=== PATIENT | male | born 1945 | race Caucasian/White ===

== ENCOUNTER → 2016-10-20 08:57 | Day surgery (SDC) | payer MEDICARE, BC ==
--- NOTE | 2016-10-19 08:59 | NUR ---
KAUFFMAN: DR. MARIE'S OFFICE NOTIFIED PATIENT TOOK LAST DOSE OF PLAVIX ON 10/16/16.
[~2016-10-20] VITALS: Ht 177.8 cm; Wt 95.3 kg
[~2016-10-20 08:57] MED LIST: BAYER CHEWABLE81 MG PO; GLUCOPHAGE1000 MG PO; GLUCOTROL XL 1010 MG PO; HCTZ25 MG PO; LIPITOR20 MG PO; OMEPRAZOLE40 MG PO; PLAVIX75 MG PO; TOPROL XL100 MG PO; TRICOR145 MG PO
[2016-10-20 11:15] LABS: CALC OSMOLALITY 279 mosm/kg (275-300); CALCIUM 9.1 mg/dL (8.5-10.1); CARBON DIOXIDE 26.6 mmol/L (21.0-32.0); CHLORIDE - SERUM 102 mmol/L (98-107); CREATININE - SERUM 0.8 mg/dL (0.6-1.3); GLUCOSE 189 mg/dL (74-106); POTASSIUM - SERUM 3.6 mmol/L (3.5-5.1); SODIUM 138 mmol/L (136-145); UREA NITROGEN 11 mg/dL (7-18); eGFR NON AFRICAN AMERICAN > 90 mL/min (90-120)
[2016-10-20 11:17] LABS: HEMATOCRIT 39.1 % (42.0-54.0); HEMOGLOBIN 12.7 g/dL (13.5-17.5); MCH 28.9 pg (26.0-34.0); MCHC 32.5 g/dL (31.0-37.0); MCV 89.1 fL (80.0-100.0); MEAN PLATELET VOLUME 10.5 fL (7.4-10.4); RBC 4.39 10x6/uL (4.20-6.10)
[2016-10-20 13:03] VITALS: BP 138/64; Ht 177.8 cm; Wt 95.3 kg
--- NOTE | 2016-10-20 14:18 | NUR ---
NO COUNTS OR PREP R/T COLONOSCOPY. BOVIE PAD IN PLACE RIGHT THIGH
--- NOTE | 2016-10-20 17:47 | NUR ---
1600-RECD TO ROOM FROM PACU. ALERT. RESP WITH EASE. 1630-FULL LIQUIDS SERVED. 1700-IV D/C. UP TO BATHROOM, VOIDED AND PASSING GAS. 1715-DISCHARGE INSTRUCTIONS REVIEWED. 1720-D/C VIA W/C WITH FAMILY.
--- NOTE | 2016-10-24 10:04 | OP ---
PATIENT NAME: ARMANDO PEGUERO MEDICAL RECORD: [id number] :49 LOCATION:D.OPS ADMISSION DATE: SURGEON: OLLIE MARIE MD DATE OF OPERATION: 10/20/2016 PREOPERATIVE DIAGNOSIS: Large polyp of the ascending colon. POSTOPERATIVE DIAGNOSES: Large polyp of the ascending colon with inability to remove the entire polyp endoscopically. This polyp will likely harbor an invasive malignancy. Also, 2 other sessile polyps; 1 was 1.4 cm, the other was 1.2 cm. PROCEDURES: 1. Total colonoscopy to the cecum. 2. Hot biopsy forceps polypectomy times 2. 3. Epinephrine sclerotherapy injection at the base of the large polyp involving the ascending colon. 4. Piecemeal snare polypectomy of the polypoid mass of the ascending colon. 5. Cold endoscopic biopsies of the ascending colon mass. 6. Control of bleeding utilizing the argon plasma glory hole tender involving the right colonic mass. SURGEON: Ollie Marie MD. AGRICULTURAL EQUIPMENT SALESPERSON: None. BLOOD LOSS: Minimal. ANESTHESIA: General. COMPLICATIONS: None. The risks, possible complications and alternatives to procedure were explained to the patient. He elects to proceed. If I had attempted to remove the entire polyp, this could have resulted in a full thickness injury as it appears that the polyp likely represents a malignancy. It had a very firm base. I took some deep biopsies, so the patient is at risk for post-polypectomy syndrome or perforation. For that reason, he is going to be dismissed home on Flagyl for a week. I will see him in the office in 2 weeks. At that time, we will discuss laparoscopic right hemicolectomy. TRANSINT:[id number] Voice Confirmation ID: [id number] DOCUMENT ID: [id number] CC: OLLIE Olivares MD at 1004 CC: SHAYNA MCKEON MD and NINA ALMANZAR [id number] DICTATION DATE: 10/20/16 1546 BROILER SUPERVISOR: 10/21/16 0136 [facility] 10/20/[address] [address]
--- NOTE | 2016-10-24 10:04 | HP ---
PATIENT: ARMANDO PEGUERO MEDICAL RECORD: [id number] ACCOUNT: [id number] LOCATION:DVeronicaBRIANNE : 49 ADMISSION DATE: 10/20/16 HISTORY AND PHYSICAL EXAMINATION HISTORY OF PRESENT ILLNESS: The patient was referred with a complex polyp involving the ascending colon. This is quite large. I am going to attempt to remove this in the operating room, utilizing the argon plasma milk vendor. The risks, possible complications and alternatives to procedure were explained to the patient. He elects to proceed. The discussion specifically included, but was not limited to, bleeding requiring emergency reoperation, infection, endoscopic perforation and the possible need for a segmental colectomy or chemotherapy if this proves to represent a malignancy. The history and physical examination was performed in the office. The history and physical examination is unchanged from the office H&P. TRANSINT:[id number] Voice Confirmation ID: [id number] DOCUMENT ID: [id number] OLLIE MARIE MD at 1004 CC: [id number] DICTATION DATE: 10/20/16 154 STORE CLERK CHECKER: 10/20/162009 [facility] 10/20/16 [facility] [address] [place] [address]
== END | disposition home or self-care (01) ==
LOC: D.OPS 08:57 → D.PAN 13:00 → D.OPS 16:45 → D.PAN 16:45
PROVIDERS: Anesthesiology
DX: D12.2 Benign neoplasm of ascending colon (principal); Z01.812 Encounter for preprocedural laboratory examination

== ENCOUNTER 2016-10-28 22:57 | Inpatient (IN) | payer MEDICARE, BC ==
[~2016-10-28] VITALS: Ht 177.8 cm; Wt 97.5 kg
--- NOTE | 2016-10-29 00:05 | NUR ---
REC'D TO ROOM 2204 VIA EMS ON STRETCHER AWAKE AND ALERT. RESP EVEN AND UNLABORED WITH NO DISTRESS NOTED. CAN EXPRESS NEEDS AND WANTS. DENIES ANY PAIN OR DISCOMFORT AT THIS TIME. TURN AND REPOSITION SELF AB DOROTEO. ASSESSMENT COMPLETED. C/L IN REACH AT BEDSIDE.
[2016-10-29 00:31] VITALS: BP 134/63; BMI 30.9
--- NOTE | 2016-10-29 03:09 | NUR ---
RESTING WITH EYES CLOSED, NO DISTRESS NOTED, FALL PRECAUTIONS IN PLACE, CL IN REACH
[2016-10-29 05:06] VITALS: BP 119/59
[2016-10-29 06:49] LABS: HEMATOCRIT 30.5 % (42.0-54.0); HEMOGLOBIN 10.2 g/dL (13.5-17.5)
--- NOTE | 2016-10-29 06:58 | NUR ---
CALL WAS PLACED TO DR. WARNER ON THIS AM INFORMING HIM OF PT ARRRIVAL ON LAST NIGHT. WAS INFORMED THAT HE WILL BE HERE ON TODAY ROUNDING AND WILL SEE PT UPON HIS ARRIVAL.
--- NOTE | 2016-10-29 08:00 | NUR ---
LYING IN BED, ON PHONE, DENIES NEEDS, BED LOWEST POSITION, CALL LIGHT IN REACH, WILL CONTINUE TO MONITOR
[2016-10-29 09:11] VITALS: BP 133/58
--- NOTE | 2016-10-29 10:00 | NUR ---
PT SITTING UP IN BED WITH NO VISABLE SIGNS OF PAIN OR DISCOMFORT AT THIS TIME. PT VOICED NO NEEDS. BED IN LOW POSITION AND CALL LIGHT WITHIN REACH. WILL CONTINUE TO MONITOR.
[2016-10-29 12:02] LABS: HEMATOCRIT 28.8 % (42.0-54.0); HEMOGLOBIN 9.4 g/dL (13.5-17.5)
[2016-10-29 12:09] LABS: BASOPHILS 0.5 % (0-2); EOSINOPHILS 1.4 % (0-7); IMMATURE GRANULOCYTES 0.3 % (0-5); LYMPHOCYTES 35.8 % (15-50); MCH 29.2 pg (26.0-34.0); MCV 88.5 fL (80.0-100.0); MEAN PLATELET VOLUME 10.6 fL (7.4-10.4); MONOCYTES 5.7 % (2-11); NEUTROPHILS 56.3 % (40-80); PLATELET COUNT 190 10x3/uL (130-400); RBC 3.22 10x6/uL (4.20-6.10); RDW 14.7 % (11.5-14.5); WBC 6.7 10x3/uL (4.8-10.8)
[2016-10-29 12:20] VITALS: BP 140/63
[2016-10-29 12:44] LABS: ALKALINE PHOSPHATASE 39 U/L (46-116); ALT (SGPT) 34 U/L (10-68); BILIRUBIN - TOTAL 0.22 mg/dL (0.2-1.3); CALC OSMOLALITY 283 mosm/kg (275-300); CALCIUM 8.1 mg/dL (8.5-10.1); CARBON DIOXIDE 25.5 mmol/L (21.0-32.0); CHLORIDE - SERUM 101 mmol/L (98-107); GLUCOSE 353 mg/dL (74-106); POTASSIUM - SERUM 3.7 mmol/L (3.5-5.1); PROTEIN - SERUM 5.9 g/dL (6.4-8.2); SODIUM 133 mmol/L (136-145); UREA NITROGEN 23 mg/dL (7-18); eGFR NON AFRICAN AMERICAN 79 mL/min (90-120)
--- NOTE | 2016-10-29 13:37 | NUR ---
SITTING IN BED, DENIES NEEDS, WILL CONTINUE TO MONITOR
--- NOTE | 2016-10-29 15:50 | NUR ---
AFTER CT HOLD METFORMIN FOR 48 HRS NOW
[2016-10-29 16:23] VITALS: BP 132/66
[2016-10-29 17:28] LABS: HEMATOCRIT 29.7 % (42.0-54.0); HEMOGLOBIN 9.7 g/dL (13.5-17.5)
[2016-10-29 19:00] VITALS: BP 113/61
--- NOTE | 2016-10-29 20:00 | NUR ---
REC'D IN BED AWAKE AND ALERT. RESP EVEN AND UNLABORED WITH NO DISTRESS NOTED. CAN EXPRESS NEEDS AND WANTS. DENEIS ANY PAIN OR DISCOMFORT AT THIS TIME. ASSESSMENT COMPLETED. C/L IN REACH AT BEDSIDE.
--- NOTE | 2016-10-29 21:46 | NUR ---
PT BS WAS CHECKED WITH RESULTS OF 311 NOTED. CALLED WAS PLACED TO DR. WARNER REC'D NEW ORDERS FOR MODERATED S/S WITH REGULAR INSULIN AT THIS TIME.
[2016-10-29 23:36] LABS: HEMATOCRIT 29.1 % (42.0-54.0); HEMOGLOBIN 9.4 g/dL (13.5-17.5)
[2016-10-30 04:00] VITALS: BP 126/72
--- NOTE | 2016-10-30 06:05 | NUR ---
PATIENT AAOX4 WATCHING TV. JUST TOOK HIBICLENS SHOWER AND HAD LINENS CHANGED. DENIES PAINS OR NEEDS.
[2016-10-30 06:40] LABS: BASOPHILS 0.5 % (0-2); EOSINOPHILS 2.9 % (0-7); HEMATOCRIT 31.2 % (42.0-54.0); HEMOGLOBIN 10.1 g/dL (13.5-17.5); IMMATURE GRANULOCYTES 0.4 % (0-5); LYMPHOCYTES 34.1 % (15-50); MCH 28.8 pg (26.0-34.0); MCHC 32.4 g/dL (31.0-37.0); MCV 88.9 fL (80.0-100.0); MEAN PLATELET VOLUME 10.2 fL (7.4-10.4); MONOCYTES 7.5 % (2-11); NEUTROPHILS 54.6 % (40-80); PLATELET COUNT 202 10x3/uL (130-400); RBC 3.51 10x6/uL (4.20-6.10); RDW 14.4 % (11.5-14.5); WBC 5.5 10x3/uL (4.8-10.8)
--- NOTE | 2016-10-30 07:00 | NUR ---
REPORT RECIEVED ASSUMED CARE. PATIEN TIN BED WITH IV INTACT. NO COMPLAINTS. CALL LIGHT WITHIN REACH.
[2016-10-30 07:03] LABS: CALCIUM 8.7 mg/dL (8.5-10.1); CARBON DIOXIDE 28.6 mmol/L (21.0-32.0); CHLORIDE - SERUM 102 mmol/L (98-107); CREATININE - SERUM 0.8 mg/dL (0.6-1.3); POTASSIUM - SERUM 3.7 mmol/L (3.5-5.1); SODIUM 136 mmol/L (136-145); eGFR NON AFRICAN AMERICAN > 90 mL/min (90-120)
[2016-10-30 07:07] LABS: CALC OSMOLALITY 277 mosm/kg (275-300); GLUCOSE 205 mg/dL (74-106); UREA NITROGEN 12 mg/dL (7-18)
[2016-10-30 08:37] VITALS: BP 140/62
--- NOTE | 2016-10-30 10:14 | NUR ---
* Is the patient Alert and Oriented? Yes 0 * How many steps to enter\exit or inside your home? 0 0 * PCP JENELLE 0 * Pharmacy [facility] 0 * Preadmission Environment Home Alone 0 * ADLs Independent 0 * Equipment None 0 * List name and contact numbers for known caregivers / representatives who currently or will assist patient after discharge: DENISE DUNCAN [phone] 0 * Community resources currently utilized None 0 * Additional services required to return to the preadmission environment? No 0 * Can the patient safely return to the preadmission environment? Yes 0 * Has this patient been hospitalized within the prior 30 days at any hospital? No 0 Grand Total: 0 Patient Name: ARMANDO PEGUERO Admission Status: Elective Accout number: [id number] Admission Date: 10-28-2016 : 1945 Admission Diagnosis: Attending: SHAUN Current LOS: 2 Anticipated DC Date: Planned Disposition: Home Primary Insurance: MEDICARE A & B Discharge Planning Comments: CM met with patient and girlfriend (Rosalba Duncan) to assess discharge planning/needs. Patient states that his discharge plan is to return home where he lives independently. His girlfriend Rosalba will be driving him home. He currently works parts salesperson. There are no step inside his home. He feels that his home is safe to return. He denies any CM needs at this time. CM will continue to follow and assist as needed with discharge planning needs. PCP: [facility] Pharmacy: [facility] Rosalba Duncan (girlfriend) [phone] or [phone] (cell) Correspondence Section Supervisor: Yanet Oneill
[2016-10-30 11:02] VITALS: Ht 177.8 cm; Wt 97.5 kg
[2016-10-30 12:05] VITALS: BP 92/62
--- NOTE | 2016-10-30 15:23 | NUR ---
GAGE GODINEZ DID INITIAL COUNT WITH DAMEON PRIOR TO THE START OF THE CASE ONLY
--- NOTE | 2016-10-30 18:30 | NUR ---
PATIENT BACK TO ROOM FROM SURGERY. IV INTACT. VS STABLE. BSCDS ON AND WORKING. FAMILY AT BEDSIDE. CALL LIGHT WITHIN REACH. MANAGER MSW FOR PAIN.
[2016-10-30 20:14] LABS: HEMATOCRIT 29.9 % (42.0-54.0); HEMOGLOBIN 9.7 g/dL (13.5-17.5)
[2016-10-30 23:25] LABS: HEMATOCRIT 30.4 % (42.0-54.0); HEMOGLOBIN 9.3 g/dL (13.5-17.5)
--- NOTE | 2016-10-31 02:04 | NUR ---
PATIENT SLEEPING WITH NO DISTRESS NOTED. VITALS WNL. RR EVEN AND UNLABORED. O2 @ 1L VIA NC. DRESSING TO ABD SLIGHTLY SOILED BUT INTACT. SCD'S ON. FAMILY AT BEDSIDE. SRX2. BED LOW. CALL LIGHT WITHIN REACH.
[2016-10-31 06:15] LABS: BASOPHILS 0.1 % (0-2); EOSINOPHILS 0 % (0-7); HEMATOCRIT 27.5 % (42.0-54.0); HEMOGLOBIN 8.9 g/dL (13.5-17.5); IMMATURE GRANULOCYTES 0.2 % (0-5); LYMPHOCYTES 8.9 % (15-50); MCH 29.2 pg (26.0-34.0); MCHC 32.4 g/dL (31.0-37.0); MCV 90.2 fL (80.0-100.0); MEAN PLATELET VOLUME 10.6 fL (7.4-10.4); MONOCYTES 5.7 % (2-11); NEUTROPHILS 85.1 % (40-80); PLATELET COUNT 230 10x3/uL (130-400); RBC 3.05 10x6/uL (4.20-6.10); RDW 14.6 % (11.5-14.5)
[2016-10-31 07:03] LABS: WBC 9.4 10x3/uL (4.8-10.8)
[2016-10-31 07:28] LABS: ALBUMIN 2.7 g/dL (3.4-5.0); ALKALINE PHOSPHATASE 29 U/L (46-116); CALCIUM 7.7 mg/dL (8.5-10.1); CARBON DIOXIDE 26.2 mmol/L (21.0-32.0); CHLORIDE - SERUM 104 mmol/L (98-107); MAGNESIUM - SERUM 1.4 mg/dL (1.8-2.4); PHOSPHOROUS 4.8 mg/dL (2.5-4.9); PROTEIN - SERUM 5.6 g/dL (6.4-8.2); SODIUM 138 mmol/L (136-145); eGFR NON AFRICAN AMERICAN 79 mL/min (90-120)
[2016-10-31 07:30] LABS: ALT (SGPT) 45 U/L (10-68); CALC OSMOLALITY 287 mosm/kg (275-300); GLUCOSE 279 mg/dL (74-106); POTASSIUM - SERUM 4.4 mmol/L (3.5-5.1); UREA NITROGEN 17 mg/dL (7-18)
--- NOTE | 2016-10-31 09:45 | NUR ---
DRESSING TO ABDOMEN CHANGED AT THIS TIME DUE TO DRIED BLOOD ON OUTSIDE OF DRESSING. PATIENT TOLERATED WITH SMALL AMOUNT OF PAIN. CALL LIGHT WITHIN REACH.
[2016-10-31 11:51] LABS: HEMATOCRIT 25.7 % (42.0-54.0); HEMOGLOBIN 8.4 g/dL (13.5-17.5)
--- NOTE | 2016-10-31 12:15 | NUR ---
SAT PATIENT UP ON SIDE OF BED. EXPLAINED NEEDS TO TRY TO MOVE AROUND TO GET HIS COLON MOVING. VERBALIZED UNDERSTANDING. SAT ON THE BED ABOUT 2 MINS THEN STATED HE WAS READY TO LAY BACK DOWN. LAID PATIENT BACK DOWN. FAMILY AT BEDSIDE. CALL LIGHT WITHIN REACH.
--- NOTE | 2016-10-31 17:50 | NUR ---
SAT PATIENT UP IN CHAIR. EXPLAINED HE NEEDED TO SAT UP FOR AWHILE. VERBALIZED UNDERSTANDING. CALL LIGHT WITHIN REACH.
--- NOTE | 2016-10-31 18:50 | NUR ---
PATIENT IN BED WITH NO COMPLAINTS. IV INTACT. CALL LIGHT WITHIN REACH.
[2016-10-31 19:00] VITALS: BP 135/56
--- NOTE | 2016-10-31 21:10 | NUR ---
AWAKE,ALERT. IV INFUSING TO LEFT FOREARM WIHTOUT REDNESS OR EDEMA NOTED. RAMIREZ. ABD DISTENDED AND FIRM. FOLELY PATENT AND DRAING LIGHT GREEN URINE. CL IN REACH. NO COMPLIANTS VOICED.
--- NOTE | 2016-11-01 00:50 | NUR ---
PATIENT RESTING WITH EYES CLOSED AND NO VISIBLE SIGNS OF DISTRESS. BED IN THE LOWEST POSITION AND CALL LIGHT WITHIN REACH.
[2016-11-01 02:27] VITALS: BP 132/54
[2016-11-01 04:00] VITALS: BP 153/64
[2016-11-01 05:23] LABS: HEMATOCRIT 23.8 % (42.0-54.0); HEMOGLOBIN 7.6 g/dL (13.5-17.5)
--- NOTE | 2016-11-01 05:39 | NUR ---
AWAKE,ALERT.CONTINUES TO HAVE ABD DISTENTION. ABD FIRM. BS HYPOACTIVE. CL IN REACH.
--- NOTE | 2016-11-01 07:30 | NUR ---
RECIEVED PT DURING WALKING ROUNDS. PT RESTING IN BED WITH COMPLAINTS OF STOMACH PAIN FROM NOT BEING ABLE TO PASS GAS. INFORMED PT THAT WE WOULD SPEAK WITH THE DOCTOR ABOUT IT AND THAT WE WOULD GET HIM UP TO WALK AFTER MORNING MEDS. ASSESSMENT DONE PER FLOWSHEET. BED IN LOW POSITION AND CALL LIGHT WITHIN REACH. WILL CONTINUE TO MONITOR.
[2016-11-01 08:44] VITALS: BP 159/65
[2016-11-01 11:39] LABS: HEMATOCRIT 24.1 % (42.0-54.0); HEMOGLOBIN 7.8 g/dL (13.5-17.5)
--- NOTE | 2016-11-01 13:10 | NUR ---
PT UP WALKING IN OROSCO WITH NURSE AID AT THIS TIME, PT STATED THAT HE WOULD TRY THIS AND THEN SOMETHING HAD TO BE DONE. INFORMED PT THAT WE WOULD SPEAK WITH . PT RETURNED TO CHAIR. CALL LIGHT WITHIN REACH. WILL CONTINUE TO MONITOR.
[2016-11-01 13:37] VITALS: BP 142/62
--- NOTE | 2016-11-01 16:20 | NUR ---
18 ALBANIAN NGT PLACED TO LEFT NARE. POSITION VERIFIED WITH AIR BOLUS. WELL TOLERATED.
[2016-11-01 16:35] VITALS: BP 136/64
[2016-11-01 16:48] LABS: HEMATOCRIT 25.3 % (42.0-54.0); HEMOGLOBIN 8.2 g/dL (13.5-17.5)
[2016-11-01 21:27] VITALS: BP 161/70
--- NOTE | 2016-11-01 21:30 | NUR ---
LYING QUIETLY WATCHING TV. NG INTACT TO LEFT NARE.DRAINING CLEAR DRAINAGE.ABD DISTENDED AND FIRM.IV INFUSING TO LEFT ARM WITHOUT REDNESS OR EDEMA NOTED. CL IN REACH
[2016-11-01 22:55] LABS: HEMATOCRIT 27.5 % (42.0-54.0); HEMOGLOBIN 8.9 g/dL (13.5-17.5)
[2016-11-02] VITALS: BP 182/79
--- NOTE | 2016-11-02 02:11 | NUR ---
RESTING QUIETLY. NO DISTRESS NOTED.CL IN REACH
[2016-11-02 04:00] VITALS: BP 90/49
--- NOTE | 2016-11-02 05:15 | NUR ---
PT IS ASLEEP WITH HOB AT 30 DEGREES HIS NG TUBE IS IN PLACE AND AT LIS ORDERED. NO DISTRESS NOTED AND EASY RESPIRATIONS. THE BED IS LOW, RAILS UP X'S 2 WITH THE CALL LIGHT AT HAND.
--- NOTE | 2016-11-02 05:50 | NUR ---
AWAKE WITH NO COMPLAINTS. CL IN REACH.
[2016-11-02 05:51] LABS: HEMATOCRIT 27.6 % (42.0-54.0); HEMOGLOBIN 9.1 g/dL (13.5-17.5)
--- NOTE | 2016-11-02 07:30 | NUR ---
RECIEVED PT DURING WALKING ROUNDS. PT RESTING IN BED WITH COMPLAINTS OF ABDOMINAL PAIN OF A 6 ON A SCALE OF 1-10. NG TUBE IN PLACE AND FUNCTIONING PROPERLY. ASSESSMENT DONE PER FLOWSHEET. BED IN LOW POSITION AND CALL LIGHT WITHIN REACH. WILL CONTINUE TO MONITOR.
[2016-11-02 07:45] VITALS: BP 164/87
--- NOTE | 2016-11-02 09:20 | NUR ---
PT HAD LIQUID BM AND WAS ABLE TO PASS GAS AT THIS TIME. WILL CONTINUE TO MONITOR.
[2016-11-02 11:48] LABS: HEMATOCRIT 27.9 % (42.0-54.0)
[2016-11-02 12:08] VITALS: BP 183/81
--- NOTE | 2016-11-02 14:36 | NUR ---
NUTRITION MONITORING & EVAL CHART REVIEWED. DIET NOW CLEAR LIQUID >AAT. WILL PROVIDE DIET, MONITOR PO INTAKE. RD FOLLOWING
[2016-11-02 15:41] VITALS: BP 184/90
[2016-11-02 16:55] LABS: HEMATOCRIT 24.4 % (42.0-54.0)
[2016-11-02 20:00] VITALS: BP 151/71
--- NOTE | 2016-11-02 20:21 | NUR ---
AWAKE,ALERT.NO COMPLAINTS VOICED. IV INFUSING TO LEFT ARM WIHTOUT REDNESS OR EDEMA NOTED. ABD DISTENDED AND FIRM.PASSING FLATUS.CL IN REACH. DIRECTIONAL BORE OPERATOR DILAUDID IN USE FOR PAIN CONTROL.
[2016-11-02 23:14] LABS: HEMATOCRIT 24.9 % (42.0-54.0); HEMOGLOBIN 8.1 g/dL (13.5-17.5)
[2016-11-03] VITALS: BP 156/72
--- NOTE | 2016-11-03 00:11 | NUR ---
RESTING QUIETLY. NO DISTRESS NOTED. CL IN REACH
--- NOTE | 2016-11-03 03:37 | NUR ---
PATIENT RESTING IN BED WITH EYES CLOSED AND NO VISIBLE SIGNS OF DISTRESS. BED IN LOWEST POSITION AND CALL LIGHT WITHIN REACH.
[2016-11-03 04:00] VITALS: BP 95/57
--- NOTE | 2016-11-03 06:29 | NUR ---
NO CHANGE IN ASSESSMENT. CL IN REACH
--- NOTE | 2016-11-03 07:30 | NUR ---
RECIEVED PT DURING WALKING ROUNDS. PT RESTING IN BED WITH COMPLAINTS OF PAIN OF A 5 ON A SCALE OF 1-10 IN THE LOWER ABDOMEN. DISCUSSED WITH THE PT AT THIS TIME ABOUT AMBULATING TO PROMOTE GAS, PT STATED HE WOULD TRY. ASSESSMENT DONE PER FLOWSHEET. BED IN LOW POSITION AND CALL LIGHT WITHIN REACH. WILL CONTINUE TO MONITOR.
[2016-11-03 08:09] VITALS: BP 156/70
--- NOTE | 2016-11-03 09:50 | NUR ---
PT AMBULATED WITH DOLL DRESSER AROUND UNIT X2, TOLERATED WELL, PT STATES HE IS PASSING GAS BUT STILL FEELS PAIN IN HIS ABDOMEN. EXPLAINED TO PT THAT PAIN AFTER SURGERY IS NORMAL. BED IN LOW POSITION AND CALL LIGHT WITHIN REACH, WILL AMBULATE WITH PT AT LATER TIME.
[2016-11-03 12:36] VITALS: BP 163/67
[2016-11-03 15:50] VITALS: BP 136/70
[2016-11-03] MEDS ORDERED: HYDROCODON-ACE1 EAC7 PO (17:31)
--- NOTE | 2016-11-03 19:00 | NUR ---
PATIENT SLEEPING WITH NO DISTRESS NOTED. AROUSES TO VOICE. HOB 40 DEGREES. RR EVEN AND UNLABORED. IV TO RIGHT WRIST PATENT WITH NO REDNESS OR SWELLING. DRESSINGS TO ABD CDI. SCD'S IN ROOM BUT OFF. SRX2. BED LOW. CALL LIGHT WITHIN REACH.
[2016-11-03 20:00] VITALS: BP 135/85
--- NOTE | 2016-11-03 20:35 | NUR ---
8 UNITS HUMULIN GIVEN FOR BS OF 208.
[2016-11-04] VITALS: BP 179/76
[2016-11-04 04:00] VITALS: BP 143/69
--- NOTE | 2016-11-04 07:00 | NUR ---
REPORT RECIEVED ASSUMED CARE. PATIENT IN BED WITH EYES CLOSED RESTING QUIETLY AT THIS TIME. IV INTACT. CALL LIGHT WITHIN REACH.
[2016-11-04 08:16] VITALS: BP 136/74
--- NOTE | 2016-11-04 08:45 | NUR ---
PATIENT STATED HIS STOMACH WAS TIGHT AND HURTING. EXPLAINED TO PATIENT TO TRY TO GET UP AND WALK. VERBALIZED UNDERSTANDING. IV INTACT. CALL LIGHT WITHIN REACH.
--- NOTE | 2016-11-04 11:21 | NUR ---
NOTIFIED DR. ADAMS OF PATIENTS COMPLAINTS OF ABDOMINAL TIGHTNESS AND DISCOMFORT. NO NEW ORDERS AT THIS TIME.
[2016-11-04 12:46] VITALS: BP 103/69
--- NOTE | 2016-11-04 13:40 | NUR ---
NGT PLACED PER ORDERS DR. ADAMS. IV REMOVED DUE TO LEAKING. FAMILY AT BEDSIDE. CALL LIGHT WITHIN REACH.
[2016-11-04 13:58] LABS: BASOPHILS 0.2 % (0-2); EOSINOPHILS 0.3 % (0-7); HEMOGLOBIN 9.6 g/dL (13.5-17.5); IMMATURE GRANULOCYTES 0.3 % (0-5); LYMPHOCYTES 20.6 % (15-50); MCHC 31.3 g/dL (31.0-37.0); MCV 89.5 fL (80.0-100.0); MEAN PLATELET VOLUME 9.4 fL (7.4-10.4); MONOCYTES 16.1 % (2-11); NEUTROPHILS 62.5 % (40-80); RBC 3.43 10x6/uL (4.20-6.10); RDW 14.7 % (11.5-14.5); WBC 5.7 10x3/uL (4.8-10.8)
[2016-11-04 14:03] LABS: HEMATOCRIT 30.7 % (42.0-54.0); PLATELET COUNT 336 10x3/uL (130-400)
[2016-11-04 14:11] LABS: CALC OSMOLALITY 274 mosm/kg (275-300); CALCIUM 8.3 mg/dL (8.5-10.1); CARBON DIOXIDE 26.3 mmol/L (21.0-32.0); CHLORIDE - SERUM 97 mmol/L (98-107); CREATININE - SERUM 0.8 mg/dL (0.6-1.3); POTASSIUM - SERUM 3.3 mmol/L (3.5-5.1); SODIUM 134 mmol/L (136-145); UREA NITROGEN 18 mg/dL (7-18); eGFR NON AFRICAN AMERICAN > 90 mL/min (90-120)
[2016-11-04 14:14] LABS: GLUCOSE 195 mg/dL (74-106)
--- NOTE | 2016-11-04 15:45 | NUR ---
PATIENT IN BED WITH EYES CLOSED RESTING QUIETLY. CALL LIGHT WITHIN REACH.
[2016-11-04 16:14] VITALS: BP 141/69
[2016-11-04 20:00] VITALS: BP 149/72
[2016-11-05] VITALS: BP 158/72
[2016-11-05 04:00] VITALS: BP 148/66
[2016-11-05 06:29] LABS: BASOPHILS 0.3 % (0-2); EOSINOPHILS 1.8 % (0-7); IMMATURE GRANULOCYTES 0.5 % (0-5); LYMPHOCYTES 23.9 % (15-50); MCH 29.2 pg (26.0-34.0); MCHC 33.2 g/dL (31.0-37.0); MCV 88.1 fL (80.0-100.0); MEAN PLATELET VOLUME 9.2 fL (7.4-10.4); MONOCYTES 13.8 % (2-11); NEUTROPHILS 59.7 % (40-80); RDW 14.6 % (11.5-14.5)
[2016-11-05 06:34] LABS: HEMATOCRIT 22.9 % (42.0-54.0); HEMOGLOBIN 7.6 g/dL (13.5-17.5); PLATELET COUNT 238 10x3/uL (130-400)
[2016-11-05 06:47] LABS: CALC OSMOLALITY 273 mosm/kg (275-300); CALCIUM 7.5 mg/dL (8.5-10.1); CARBON DIOXIDE 28.8 mmol/L (21.0-32.0); CHLORIDE - SERUM 99 mmol/L (98-107); CREATININE - SERUM 0.8 mg/dL (0.6-1.3); GLUCOSE 157 mg/dL (74-106); MAGNESIUM - SERUM 1.6 mg/dL (1.8-2.4); SODIUM 135 mmol/L (136-145); UREA NITROGEN 15 mg/dL (7-18); eGFR NON AFRICAN AMERICAN > 90 mL/min (90-120)
--- NOTE | 2016-11-05 07:00 | NUR ---
REPORT RECIEVED ASSUMED CARE. PATIENT IN BED WITH IV INTACT. NO COMPLAINTS. CALL LIGHT WITHIN REACH.
[2016-11-05 08:04] VITALS: BP 146/64
--- NOTE | 2016-11-05 11:30 | NUR ---
PATIENT FIRST UNIT STARTED AT THIS TIME. VS STABLE. NO COMPLAINTS. IV INTACT. CALL LIGHT WITHIN REACH.
--- NOTE | 2016-11-05 11:45 | NUR ---
PATIENT IN BED WITH BLOOD INFUSING AT THIS TIME. IV INTACT. NO COMPLAINTS. VS STABLE. CALL LIGHT WITHIN REACH.
[2016-11-05 12:00] VITALS: BP 145/63
--- NOTE | 2016-11-05 13:30 | NUR ---
PATIENT FIRST UNIT OF BLOOD FINISHED. NO PROBLEMS OR DISTRESS. IV INTACT. NO COMPLAINTS. VS STABLE. CALL LIGHT WITHIN REACH.
--- NOTE | 2016-11-05 14:30 | NUR ---
PATIENT RECIEVED SECOND UNIT OF BLOOD. IV INTACT. NO COMPLAINTS. VS STABLE. CALL LIGHT WITHIN REACH.
--- NOTE | 2016-11-05 16:20 | NUR ---
PATIENT BLOOD FINISHED, VS STABLE. NO COMPLAINTS. AWAITING ABDOMINAL CT. CALL LIGHT WITHIN REACH.
--- NOTE | 2016-11-05 18:44 | NUR ---
PATIENT IN BED WITH EYES CLOSED RESTING QUIETLY. NGT AND IV INTACT. NO COMPLAINTS. CALL LIGHT WITHIN REACH.
--- NOTE | 2016-11-05 19:00 | NUR ---
PATIENT IN BED WATCHING TV. HOB 30 DEGREES. AAOX4. RR EVEN AND UNLABORED. 0 S/S OF DISTRESS. STATES PAIN IS AN 8/10. NG TUBE TO LEFT NARE TO LIS. IV TO LEFT HAND PATENT WITH NO REDNESS OR SWELLING. DRESSINGS TO ABD CDI. SCD'S IN ROOM BUT OFF. SRX2. BED LOW. CALL LIGHT WITHIN REACH.
[2016-11-05 20:00] VITALS: BP 19/77
--- NOTE | 2016-11-05 20:40 | NUR ---
NIGHTTIME MEDICATIONS ADMINISTERED. 4 UNITS HUMULIN GIVEN FOR BS OF 185. NORCO GIVEN FOR PAIN. WILL REASSESS.
[2016-11-06] VITALS: BP 161/79
--- NOTE | 2016-11-06 02:45 | NUR ---
NORCO GIVEN FOR PAIN. WILL REASSESS.
[2016-11-06 04:00] VITALS: BP 156/71
[2016-11-06 06:03] LABS: CALC OSMOLALITY 273 mosm/kg (275-300); CALCIUM 7.8 mg/dL (8.5-10.1); CARBON DIOXIDE 30.1 mmol/L (21.0-32.0); CHLORIDE - SERUM 96 mmol/L (98-107); CREATININE - SERUM 0.7 mg/dL (0.6-1.3); GLUCOSE 178 mg/dL (74-106); MAGNESIUM - SERUM 1.7 mg/dL (1.8-2.4); SODIUM 135 mmol/L (136-145); UREA NITROGEN 12 mg/dL (7-18); eGFR NON AFRICAN AMERICAN > 90 mL/min (90-120)
--- NOTE | 2016-11-06 07:45 | NUR ---
ENEMA GIVEN, LARGE BOWEL MOVEMENT AFTER, DENIES NEEDS, WILL CONINUE TO MONITOR
[2016-11-06 09:35] VITALS: BP 167/67
[2016-11-06 11:49] VITALS: BP 112/73
[2016-11-06 16:29] VITALS: BP 163/72
--- NOTE | 2016-11-06 19:00 | NUR ---
PATIENT SITTING UP IN CHAIR. AAOX4. RR EVEN AND UNLABORED. 0 S/S OF DISTRESS. NG TUBE TO LEFT NARE TO LIS. STATES PAIN IS A 4/10. IV TO LEFT HAND PATENT WITH NO REDNESS OR SWELLING. DRESSINGS TO ABD CDI. CALL LIGHT WITHIN REACH.
[2016-11-06 20:00] VITALS: BP 149/72
--- NOTE | 2016-11-06 22:30 | NUR ---
NORCO GIVEN FOR PAIN. WILL REASSESS.
--- NOTE | 2016-11-06 22:30 | NUR ---
NIGHTTIME MEDICATION ADMINISTERED. 2 UNITS HUMULIN ADMINISTERED FOR BS OF 185.
[2016-11-07] VITALS: BP 144/70
[2016-11-07 04:00] VITALS: BP 140/68
--- NOTE | 2016-11-07 04:39 | NUR ---
PATIENT SITTING IN CHAIR. C/O BACK PAIN OF A 10/14. NORCO GIVEN. WILL REASSESS.
--- NOTE | 2016-11-07 07:30 | NUR ---
PATIENT IN LOW SANCHEZ POSITION RESTING QUIETLY WITH EYES CLOSED. RESPIRATIONS EVEN AND UNLABORED. SIDE RAILS UP X2. BED IN LOW POSITION. CALL LIGHT IN REACH.
--- NOTE | 2016-11-07 07:43 | NUR ---
UP TO BATHROOM, DENIES NEEDS, CALL LIGHT IN REACH, WILL CONTINUE TO MONITOR
[2016-11-07 09:30] VITALS: BP 157/72
[2016-11-07 13:54] VITALS: BP 174/81
--- NOTE | 2016-11-07 14:22 | NUR ---
SLEEPING, BREATHING EVEN UNLABORED, WILL CONTINEU TO MONITOR
[2016-11-07 16:23] VITALS: BP 148/70
--- NOTE | 2016-11-07 19:00 | NUR ---
PATIENT SITTING UP IN CHAIR. AAOX4. RR SHALLOW AND UNLABORED. STATES PAIN IS AN 8/10 AND THAT HE IS "VERY UNCOMFORTABLE." IV TO LEFT HAND PATENT WITH NO REDNESS OR SWELLING. DRESSINGS TO ABD CDI. CALL LIGHT WITHIN REACH.
[2016-11-07 20:00] VITALS: BP 166/82
--- NOTE | 2016-11-07 22:05 | NUR ---
NIGHTTIME MEDICATION ADMINISTERED. 8 UNITS HUMULIN GIVEN FOR BS OF 236. NORCO GIVEN FOR PAIN AND ZOFRAN GIVEN FOR NAUSEA.
[2016-11-08] VITALS: BP 143/71
[2016-11-08 04:00] VITALS: BP 126/71
--- NOTE | 2016-11-08 04:46 | NUR ---
NORCO GIVEN FOR PAIN. WILL REASSESS.
[2016-11-08 05:47] LABS: BASOPHILS 0.2 % (0-2); EOSINOPHILS 0 % (0-7); HEMATOCRIT 34.6 % (42.0-54.0); HEMOGLOBIN 11.3 g/dL (13.5-17.5); IMMATURE GRANULOCYTES 0.6 % (0-5); LYMPHOCYTES 12.2 % (15-50); MCH 28.6 pg (26.0-34.0); MCHC 32.7 g/dL (31.0-37.0); MCV 87.6 fL (80.0-100.0); MEAN PLATELET VOLUME 9.7 fL (7.4-10.4); RBC 3.95 10x6/uL (4.20-6.10); RDW 14.9 % (11.5-14.5); WBC 9.2 10x3/uL (4.8-10.8)
[2016-11-08 06:03] LABS: CALC OSMOLALITY 276 mosm/kg (275-300); CALCIUM 7.5 mg/dL (8.5-10.1); CARBON DIOXIDE 30.3 mmol/L (21.0-32.0); CHLORIDE - SERUM 96 mmol/L (98-107); CREATININE - SERUM 0.9 mg/dL (0.6-1.3); GLUCOSE 215 mg/dL (74-106); MAGNESIUM - SERUM 1.9 mg/dL (1.8-2.4); PLATELET COUNT 351 10x3/uL (130-400); SODIUM 134 mmol/L (136-145); UREA NITROGEN 20 mg/dL (7-18); eGFR NON AFRICAN AMERICAN 89 mL/min (90-120)
--- NOTE | 2016-11-08 07:15 | NUR ---
PATIENT IN LOW SANCHEZ POSITION RESTING QUIETLY WITH EYES CLOSED. RESPIRATIONS EVEN AND UNLABORED. SIDE RAILS UP X2. CALL LIGHT IN REACH.
--- NOTE | 2016-11-08 07:45 | NUR ---
SLEEPING, BREATHING EVEN UNLABORED, BED LOWEST POSITION, CALL LIGHT IN REACH, WILL CONTINUE TO MONITOR
[2016-11-08 08:06] VITALS: BP 138/65
[2016-11-08 12:27] VITALS: BP 131/62
[2016-11-08 15:52] VITALS: BP 152/64
[2016-11-08 20:00] VITALS: BP 134/65
[2016-11-09] VITALS: BP 122/60
[2016-11-09 04:00] VITALS: BP 121/57
[2016-11-09 05:31] LABS: BASOPHILS 0.1 % (0-2); HEMATOCRIT 30.9 % (42.0-54.0); HEMOGLOBIN 10.1 g/dL (13.5-17.5); IMMATURE GRANULOCYTES 0.6 % (0-5); LYMPHOCYTES 15.2 % (15-50); MCH 28.9 pg (26.0-34.0); MCHC 32.7 g/dL (31.0-37.0); MCV 88.3 fL (80.0-100.0); MEAN PLATELET VOLUME 9.6 fL (7.4-10.4); MONOCYTES 11.6 % (2-11); NEUTROPHILS 71.5 % (40-80); PLATELET COUNT 306 10x3/uL (130-400); RDW 14.7 % (11.5-14.5)
[2016-11-09 06:10] LABS: CARBON DIOXIDE 27.6 mmol/L (21.0-32.0); CHLORIDE - SERUM 96 mmol/L (98-107); CREATININE - SERUM 0.7 mg/dL (0.6-1.3); MAGNESIUM - SERUM 1.7 mg/dL (1.8-2.4); SODIUM 133 mmol/L (136-145); UREA NITROGEN 15 mg/dL (7-18); eGFR NON AFRICAN AMERICAN > 90 mL/min (90-120)
[2016-11-09 06:13] LABS: CALC OSMOLALITY 268 mosm/kg (275-300); CALCIUM 6.9 mg/dL (8.5-10.1); GLUCOSE 142 mg/dL (74-106); POTASSIUM - SERUM 2.9 mmol/L (3.5-5.1)
--- NOTE | 2016-11-09 08:05 | NUR ---
ASSESSMENT PER FLOW SHEET.PT WITHOUT DISTRESS.DENIES NEEDS AT PRESENT.ASSIST TO BATHROOM AND BACK TO BED.CALL LIGHT IN REACH
[2016-11-09 08:26] VITALS: BP 141/65
[2016-11-09 12:46] VITALS: BP 140/66
--- NOTE | 2016-11-09 13:30 | NUR ---
NUTRITION MONITORING & EVAL CHART REVIEWED. CLEAR LIQUID DIET. IF PT UNABLE TO TOLERATE FULL LIQUID DIET IN 24 TO 48 HOURS, RECOMMEND STARTING NUTRITION SUPPORT. RD FOLLOWING
--- NOTE | 2016-11-09 16:05 | NUR ---
CALL TO DR. FRANK MERCEDES... STOOL STUDIES
[2016-11-09 16:11] VITALS: BP 138/68
--- NOTE | 2016-11-09 16:13 | NUR ---
ORDERS RECIEVED PER DR. WARNER AND INITIATED
--- NOTE | 2016-11-09 17:36 | NUR ---
INCREASED ABDOMINAL DISTENTION AND GAS.CALL TO
--- NOTE | 2016-11-09 18:37 | NUR ---
PT UPSET,PAGE TO DR WARNER.
[2016-11-09 20:00] VITALS: BP 121/61
--- NOTE | 2016-11-09 23:42 | NUR ---
1944)REC'D STANDING AT BEDSIDE.ANGRY STATES HASN'T LOOKED AT MY STOMACH INTRUCTED WILL CALL AGAIN IF ANY FURTHER PROBLEMS .DENIES NAUSEA. WILL CONTINUE TO MONITOR FOR ANY CHGES IN CHGES. IN CONDITION AND FOLLOW CURRENT PLAN OF CARE.
[2016-11-10] VITALS: BP 131/72
--- NOTE | 2016-11-10 00:44 | NUR ---
ASSESSED, AWAKE WATCHING TV WITH FAMILY MEMBER AT THE BEDSIDE ASLEEP. NO PROBLEMS NOTED OR VOICED. BED IS LOW, RAILS UP X'S 2 WITH THE CALL LIGHT AT HAND.
--- NOTE | 2016-11-10 00:48 | NUR ---
ASSESSED, PT IS RESTING QUIET ASLEEP WITH EASY RESPIRATIONS AND NO DISTRESS NOTED. HOB IS UP 30 DEGREES. THE BED IS LOW, RAILS UP X'S 2 WITH THE CALL LIGHT AT HAND.
[2016-11-10 04:00] VITALS: BP 146/65
[2016-11-10 07:37] VITALS: BP 148/64
--- NOTE | 2016-11-10 07:50 | NUR ---
ASSESSMENT PER FLOW SHEET.PT WITHOUT DISTRESS.STATES HAD BETTER NIGHT,BUT COMPLAINS OF GAS.ABD DISTENDED AND FIRM.PT DENIES NAUSE,BUT STATES HE HAS BEEN BURPING.LAP SITES TO ABDOMEN X3 CDI.CALL LIGHT IN REACH
[2016-11-10 12:11] VITALS: BP 148/73
[2016-11-10 15:36] VITALS: BP 141/77
--- NOTE | 2016-11-10 17:00 | NUR ---
16 KINYARWANDA NGT INSERTED TO RIGHT NARE. 1750 CC OF DARK GREEN COLORED LIQUID RETURNED TO CANISTERS. ASSIST TO BATHROOM AND PT HAD MEDIUM DARK GREEN STOOL WITH SMALL SOFT FORMED PIECES. REPORTS IMMEDIATE RELIEF AFTER NGT INSERTION.MONITOR FOR NEEDS.CALL LIGHT IN REACH.
--- NOTE | 2016-11-10 19:13 | NUR ---
FEELING BETTER.2000CC OF GREEN COLORED DRAINAGE FROM NGT.CONT PLAN OF CARE
[2016-11-10 20:00] VITALS: BP 135/70
--- NOTE | 2016-11-10 23:08 | NUR ---
ASSESSED, PT REMAINS IN ISOLATION, HIS NG TUBE IS SECURE TO LIS AND HE HAS A DRUG AND ALCOHOL TREATMENT SPECIALIST FOR PAIN CONTROL. REQUESTED A FAN EARLIER BUT IS NOW WANTING IT OFF. THE BED IS LOW, RAILS UP X'S 2 WITH THE CALL LIGHT AT HAND.
[2016-11-11] VITALS: BP 146/73
[2016-11-11 04:00] VITALS: BP 150/66
[2016-11-11 07:54] VITALS: BP 144/60
--- NOTE | 2016-11-11 08:00 | NUR ---
ASSESSMENT PER FLOW SHEET.FEELING BETTER TODAY.STILL HAVING MEDIUM GREEN DRAINAGE IN NGT CANISTER.REPORTS LOOSE STOOLS THIS AM.WITHOUT NAUSEA AND VOMITING.ABDOMEN DISTEDED AND FIRM,BUT LESS THAN YESTERDAY.PAIN CONTROLLED WITH RANGE AIDE.CALL LIGHT IN REACH.ENTERIC ISOLATION MAINTAINED.
[2016-11-11 12:39] VITALS: BP 145/61
[2016-11-11 15:30] VITALS: BP 140/83
--- NOTE | 2016-11-11 17:15 | NUR ---
STILL HAVING SOME ABDOMINAL DISCOMFORT. APROX 800CC OF BILE COLORED DRAINAGE IN NGT CANISTER. REPORTS LOOSE STOOLS.MEDS ORDERED.REMAINS WITHOUT CHNAGE FROM INITIAL SHIFT ASSESSMENT.CONT PLAN OF CARE
--- NOTE | 2016-11-11 19:15 | NUR ---
PATIENT RESTING IN BED WITH GUESTS AT BEDSIDE. PATIENT DENIES NEEDS AT THIS TIME. BED IN LOWEST POSITION AND CALL LIGHT WITHIN REACH. ENCOURAGED THE PATIENT TO CALL IF HE HAS NEEDS.
[2016-11-11 20:00] VITALS: BP 139/70
[2016-11-12] VITALS: BP 153/54
[2016-11-12 04:00] VITALS: BP 151/69
--- NOTE | 2016-11-12 07:45 | NUR ---
ASSESSMENT PER FOW SHEET.PT WITHOUT DISTRESS.MINIMAL LIGHT GREEN DRAINAGE IN NGT CANISTER.ABDOMEN STILL DISTENDED AND FIRM.DENIES NAUSEA.REPORTS LOOSE STOOL THIS AM X1.REPORTS PASSING GAS THIS AM.BOWEL SOUNDS POSITIVE TODAY. PAIN CONTROLLED WITH SQL TECH.ISOLATION MAINTAINED.CALL LIGHT IN REACH
[2016-11-12 08:59] VITALS: BP 148/74
[2016-11-12 13:24] VITALS: BP 92/47
--- NOTE | 2016-11-12 13:30 | NUR ---
DENIES PAIN IN ABDOMEN.STATES PAIN IN NOSE AND THROAT FROM NGT INSERTION.FEELING BETTER.VISITORS HERE TO SEE HIM.MONITOR FOR NEEDS.
[2016-11-12 15:44] VITALS: BP 124/71
--- NOTE | 2016-11-12 16:18 | NUR ---
REMAINS WITHOUT NEEDS.ISOLATION MAINTAINED.CALL LIGHT IN REACH
[2016-11-12 19:00] VITALS: BP 168/77
--- NOTE | 2016-11-12 19:46 | NUR ---
PATIENT RESTING IN BED AND DENIES NEEDS AT THIS TIME. BED IN LOWEST POSITION AND CALL LIGHT WITHIN REACH. ENCOURAGED THE PATIENT TO CALL IF HE HAS NEEDS.
--- NOTE | 2016-11-12 20:36 | NUR ---
ADMINISTERED MEDS PER ORDERS. PATIENT DENIES NEEDS AT THIS TIME.
[2016-11-13] VITALS: BP 146/76
[2016-11-13 04:00] VITALS: BP 159/82
--- NOTE | 2016-11-13 07:00 | NUR ---
REPORT RECIEVED ASSUMED CARE. PATIENT IN BED WITH IV INTACT. NO COMPLAINTS. NGT INTACT. CALL LIGHT WITHIN REACH.
[2016-11-13 08:04] VITALS: BP 152/83
[2016-11-13 11:35] VITALS: BP 147/69
[2016-11-13 12:53] LABS: BASOPHILS 0.2 % (0-2); EOSINOPHILS 0.1 % (0-7); HEMATOCRIT 29.8 % (42.0-54.0); HEMOGLOBIN 9.6 g/dL (13.5-17.5); IMMATURE GRANULOCYTES 0.7 % (0-5); LYMPHOCYTES 9.8 % (15-50); MCH 28.7 pg (26.0-34.0); MCHC 32.2 g/dL (31.0-37.0); MCV 89.2 fL (80.0-100.0); MONOCYTES 9.2 % (2-11); PLATELET COUNT 273 10x3/uL (130-400); RBC 3.34 10x6/uL (4.20-6.10); RDW 14.7 % (11.5-14.5); WBC 10.3 10x3/uL (4.8-10.8)
[2016-11-13 13:23] LABS: ALKALINE PHOSPHATASE 63 U/L (46-116); ALT (SGPT) 15 U/L (10-68); BILIRUBIN - TOTAL 0.45 mg/dL (0.2-1.3); CALC OSMOLALITY 264 mosm/kg (275-300); CALCIUM 7.9 mg/dL (8.5-10.1); CARBON DIOXIDE 24.6 mmol/L (21.0-32.0); CHLORIDE - SERUM 98 mmol/L (98-107); CREATININE - SERUM 0.5 mg/dL (0.6-1.3); POTASSIUM - SERUM 4.9 mmol/L (3.5-5.1); SODIUM 130 mmol/L (136-145); UREA NITROGEN 4 mg/dL (7-18); eGFR NON AFRICAN AMERICAN > 90 mL/min (90-120)
[2016-11-13 13:31] LABS: GLUCOSE 232 mg/dL (74-106)
--- NOTE | 2016-11-13 14:37 | NUR ---
NUTRITION MONITORING & EVAL CHART REVIEWED. PT REMAINS NPO. IF UNABLE TO START FULL LIQUID DIET, RECOMMEND STARTING NUTRITION SUPPORT. PT HAS BEEN NPO/CLEAR LIQUID FOR LARGE PORTION OF CURRENT ADMISSION. RD FOLLOWING
[2016-11-13 15:46] VITALS: BP 147/77
--- NOTE | 2016-11-13 16:15 | NUR ---
PATIENT NGT CLAMPED PER SHAYNA GODINEZ/DR. MARIE. PATIENT CLEAR LIQUIDS ORDERED. IV INTACT. NO COMPLAINTS. CALL LIGHT WITHIN REACH.
--- NOTE | 2016-11-13 18:45 | NUR ---
PATIENT TOLERATED CLEAR DIET. NO COMPLAINTS OF NAUSEA OR PAIN. IV INTACT. NGT STILL CLAMPED. CALL LIGHT WITHIN REACH.
[2016-11-13 20:56] VITALS: BP 149/72
[2016-11-14] VITALS: BP 144/72
[2016-11-14 04:00] VITALS: BP 154/78
--- NOTE | 2016-11-14 07:00 | NUR ---
REPORT RECIEVED ASSUMED CARE. PATIENT IN BED WITH IV INTACT. NO COMPLAINTS AT THIS TIME. CALL LIGHT WITHIN REACH.
[2016-11-14 08:08] VITALS: BP 139/76
--- NOTE | 2016-11-14 09:30 | NUR ---
PATIENT IN BED WITH IV INTACT. NO COMPLAINTS AT THIS TIME. NGT CLAMPED. PATIENT TOLERATED CLEAR LIQUID DIET. CALL LIGHT WITHIN REACH.
--- NOTE | 2016-11-14 11:03 | NUR ---
PATIENT IN WITH PT AT THIS TIME. CALL LIGHT WITHIN REACH.
[2016-11-14 12:00] VITALS: BP 148/82
--- NOTE | 2016-11-14 14:10 | NUR ---
PATIENT NGT REMOVED PER ORDERS. TOLERATED WITH SMALL AMOUNT OF PAIN. IV INTACT. CALL LIGHT WITHIN REACH.
[2016-11-14 16:32] VITALS: BP 141/69
--- NOTE | 2016-11-14 18:23 | NUR ---
PATIENT IN BED WITH IV OUT. STATED HE DID NOT WANT IT RESTARTED. PATIENT POTASSIUM WNL. POTASSIUM IVF NOT NEEDED FOR TONIGHT. CHEESE TESTER NOT NEEDED. PATIENT STATED HE WOULD TAKE PAIN PILLS.
[2016-11-14 20:00] VITALS: BP 136/68
--- NOTE | 2016-11-14 20:10 | NUR ---
PATIENT IS AWAKE, ALERT AND ORIENTED X'S 4. RESPIRATIONS ARE EVEN AND UNLABORED. NO SIGNS OF DISTRESS NOTED. PATIENT DENIES NEEDS AT THIS TIME. BED IN LOWEST POSITION, CALL LIGHT IN REACH. ENTERIC ISOLATION PRECAUTIONS MAINTAINED.
--- NOTE | 2016-11-14 21:23 | NUR ---
ALERT ORINETED X 3. NO COMPLIANTS VOICED. STERI STRIPS INTACT TO ABD.INCISIONS. NO DRAINAGE NOTED. ABD FIRM. CL IN REACH.
[2016-11-15] VITALS: BP 136/71
--- NOTE | 2016-11-15 01:53 | NUR ---
RESTING QUIETLY. NO DISTRESS NOTED. CL IN REACH
[2016-11-15 04:00] VITALS: BP 138/68
--- NOTE | 2016-11-15 06:21 | NUR ---
AWAKE WITH NO COMPLAINTS. NO CHANGE IN ASSESSMENT.
--- NOTE | 2016-11-15 07:40 | NUR ---
ASSESSMENT PER FLOW SHEET.PT WITHOUT DISTRESS AT PRESENT.PT HAD MODERATE AMOUNT OF BLOODY DRAINAGE FROM RLQ LAP SITE.DRAINAGE NOTED ON FLOOR,BED AND CLOTHES.PT CLEANED AND GOWN PLACED ON HIM.DRESSING TO ABDOMEN BY SHAYNA MACKAY RN.ISOLATION MAINTAINED
[2016-11-15 08:01] VITALS: BP 138/67
[2016-11-15 11:54] VITALS: BP 148/62
[2016-11-15 16:30] VITALS: BP 150/74
--- NOTE | 2016-11-15 18:43 | NUR ---
REMAINS WITHOUT BLEEDING FROM LAP SITE.DRESSING REMAINS CLEAN,DRY AND INTACT.DENIES NEEDS.WITHOUT CHANGE FROM INITIAL SHIFT ASSESSMENT.CONT PLAN OF CARE
[2016-11-15 19:00] VITALS: BP 145/76
--- NOTE | 2016-11-15 20:10 | NUR ---
AWAKE,ALERT.NO COMPLIANTS VOICED. STERI STRIPS INTACT TO LA0 SITE INCISION TO ABD. NO DRAINAGE NOTED. VOIDING PER URINAL. CL IN REACH
[2016-11-16 04:00] VITALS: BP 142/68
--- NOTE | 2016-11-16 05:30 | NUR ---
AWAKE,WITH NO COMPLIANTS. CL IN REACH
[2016-11-16 07:52] VITALS: BP 139/70
--- NOTE | 2016-11-16 07:55 | NUR ---
ASSESSMENT PER FLOW SHEET.PT WITHOUT DISTRESS.FEELING BETTER.ENTERIC ISOLATION MAINTAINED.CALL LIGHT IN REACH
[2016-11-16 12:23] VITALS: BP 132/66
--- NOTE | 2016-11-16 12:26 | NUR ---
DISCHARGE INSTRUCTIONS ,STATES UNDERSTANDING. ASSIST WITH GETTING DRESSED.DRESSING TO ABDOMEN CHANGED,INCISION APROXIMATED WITHOUT DRAINAGE. LUNCH TRAY SERVED
--- NOTE | 2016-11-16 12:45 | NUR ---
LEFT UNIT VIA [facility] FOR TRANSPORT TO [facility].
--- NOTE | 2016-11-16 12:58 | NUR ---
PATIENT DISCHARGED TODAY TO [facility] TO A SKILLED BED. PATIENT WAS TRANSPORTTED TO RESIDENTIAL VIA THEIR PERSONAL VAN. FAMILY IS AT PATIENT SIDE
--- NOTE | 2016-11-16 12:59 | NUR ---
REPORT TO [facility],SPOKE WITH RUSTY GEIGER LPN
== END 2016-11-16 12:45 | DRG 330 ==
LOC: D.MS 22:57
PROVIDERS: Surgery; ADMIT Surgery
PROC: 0DTF4ZZ Resection of Right Large Intestine, Percutaneous Endoscopic Approach (ICD-10-PCS; principal; 2016-10-30 10:00)
PROC: 0D9670Z Drainage of Stomach with Drainage Device, Via Natural or Artificial Opening (ICD-10-PCS; 2016-11-04)
PROC: 0D9670Z Drainage of Stomach with Drainage Device, Via Natural or Artificial Opening (ICD-10-PCS; 2016-11-10)
DX: D12.6 Benign neoplasm of colon, unspecified (principal); K92.2 Gastrointestinal hemorrhage, unspecified; A04.7 Enterocolitis due to Clostridium difficile; D62 Acute posthemorrhagic anemia; I10 Essential (primary) hypertension; E11.9 Type 2 diabetes mellitus without complications; J44.9 Chronic obstructive pulmonary disease, unspecified; E78.5 Hyperlipidemia, unspecified; K21.9 Gastro-esophageal reflux disease without esophagitis; Z95.1 Presence of aortocoronary bypass graft; E87.6 Hypokalemia